=== PATIENT | male | born 1995 | race Caucasian/White ===

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

== ENCOUNTER 2023-11-13 08:58 | Emergency (ER) | payer OTHER, SELFPAY ==
[~2023-11-13] VITALS: Ht 182.9 cm; Wt 72.8 kg
[2023-11-13 08:58] VITALS: BP 113/56; TEMP 98.3; O2SAT 99
[~2023-11-13 08:58] MED LIST changes: +AMOX500C PO; +CYCL-707 PO; -CYCL10TA PO; +IBUP80TA PO; +NAPR-837 PO; -NAPR500T PO; +ZOFR4TAB14 PO
[2023-11-13] MEDS: LIDOCAINE 1% MDV 20ML VIAL SC ONE (09:15)
[2023-11-13] MEDS ORDERED: METH-1164 PO (09:29)
== END 2023-11-13 09:51 | disposition home or self-care (01) ==
LOC: M ED 08:58
DX: M62.838 Other muscle spasm (principal); M25.512 Pain in left shoulder; J45.909 Unspecified asthma, uncomplicated; Z88.1 Allergy status to other antibiotic agents; Z79.1 Long term (current) use of non-steroidal anti-inflammatories (NSAID); Z79.899 Other long term (current) drug therapy